=== PATIENT | male | born 1950 | race Caucasian/White ===

== ENCOUNTER 2025-01-07 05:18 | Observation (INO) | payer MEDICARE ==
[2025-01-05 12:43] LABS: BASOPHILS % 0.6 % (0.0-1.0); EOSINOPHILS % 4.9 % (0.0-6.0); LYMPHOCYTES % 27.1 % (18.0-39.1); MONOCYTES % 13.0 % (4.4-11.3); NEUTROPHILS % 54.1 % (38.7-80.0); RED CELL DISTRIBUTION WIDTH 13.9 % (11.7-14.4)
[2025-01-05 13:12] LABS: INR 1.03
[2025-01-05 13:21] LABS: EST GLOMERULAR FILTRATION RATE 94.0 ML/MIN (>=60)
[~2025-01-07] VITALS: Ht 175.3 cm; Wt 98.9 kg
[~2025-01-07 05:18] MED LIST: AMLODIPINE BESYL5 MG PO; ATORVASTATIN CA10 MG PO; CLARITIN10 MG PO; D3-5000125 MCG; ELIQUIS5 MG PO; LYRICA150 MG PO; METFORMIN HCL500 MG PO; METOPROLOL SUCC50 MG PO; PRILOSEC OTC20 MG; REZDIFFRA PO; VITAMIN C1000 MG PO
[2025-01-07] MEDS: CEFAZOLIN SODIUM 2 GM ONE (06:32)
[2025-01-07] MEDS: LACTATED RINGER'S 1,000 ML ONE (06:33)
[2025-01-07] MEDS ORDERED: FENTANYL CITRATE/PF 100MCG/2 ML INJ ONE ×2 (06:39→06:42)
[2025-01-07] MEDS ORDERED: LIDOCAINE HCL 2% LOCAL INJ 5 ML SDV VIAL INJ ONE (06:42)
[2025-01-07] MEDS ORDERED: ROCURONIUM BROMIDE 1 ML IV ONE (06:42)
[2025-01-07] MEDS ORDERED: PROPOFOL IV EMULSION 10 MG/ML 20 ML VIAL ONE (06:43)
[2025-01-07] MEDS ORDERED: SEVOFLURANE INHAL SOLN 250 ML PEN BTL ONE (06:43)
[2025-01-07] MEDS ORDERED: MIDAZOLAM HCL 2 MG/2 ML VIAL ONE (06:43)
[2025-01-07] MEDS ORDERED: DOCUSATE SODIUM 100 MG CAP PO PRN (07:00)
[2025-01-07] MEDS ORDERED: ONDANSETRON HCL INJ 2MG/ML 2ML 2 MG/ML VIAL IV PRN (07:00)
[2025-01-07] MEDS ORDERED: ACETAMINOPHEN 1000 MG/100 ML 100 ML IV ONE (07:50)
[2025-01-07] MEDS ORDERED: ROPIVACAINE/EPI/CLONIDINE/KET 50 ML SYRINGE INJ ONE (08:00)
[2025-01-07] MEDS ORDERED: EPHEDRINE SULFATE INJ 50 MG/ML VIAL ONE (08:06)
[2025-01-07] MEDS ORDERED: DEXAMETHASONE SOD PHOS INJ 4 MG/ML SDV ONE (08:06)
[2025-01-07] MEDS ORDERED: SODIUM CHLORIDE 0.9% INJ 10 ML VIAL ONE (08:06)
[2025-01-07] MEDS ORDERED: PHENYLEPHRINE HCL 1% 10 MG/ML VIAL ONE (08:06)
[2025-01-07] MEDS ORDERED: ONDANSETRON HCL INJ 2MG/ML 2ML 2 MG/ML VIAL ONE (08:06)
[2025-01-07] MEDS ORDERED: SUGAMMADEX SODIUM 200 MG/2 ML VIAL IV ONE (08:16)
[2025-01-07] MEDS: HYDROCODONE/APAP 7.5MG-325MG 1 EA TAB ONE (09:20)
[2025-01-07] MEDS: CEFAZOLIN SODIUM 2 GM in SODIUM CHLORIDE 0.9% 100 ML IV SCH (17:06)
[2025-01-07 17:58] VITALS: BP 123/77; PULSE 62; RESP 15; TEMP 97.5; O2SAT 97
[2025-01-07 20:00] VITALS: BP_SYST 120; BP_SYST 147; BP_DIAS 52; BP_DIAS 87; PULSE 106; PULSE 60; RESP 17; TEMP 97.9; TEMP 98.9; O2SAT 95; O2SAT 97
[2025-01-07] MEDS ORDERED: APIXABAN 5 MG TABLET PO SCH (21:00)
[2025-01-07] MEDS: AMLODIPINE BESYLATE 5 MG TAB PO SCH (21:46)
[2025-01-07] MEDS: ATORVASTATIN 10 MG TAB PO SCH (21:46)
[2025-01-07] MEDS: METOPROLOL SUCCINATE 50 MG TAB XL PO SCH (21:46)
[2025-01-07] MEDS: APIXABAN 5 MG TABLET PO SCH (21:47)
[2025-01-07] MEDS: HYDROCODONE/APAP 7.5MG-325MG 1 EA TAB PO PRN (21:47)
[2025-01-07] MEDS: PREGABALIN 75 MG CAP PO SCH (21:47)
[2025-01-07] MEDS: METFORMIN HCL 500 MG TAB PO SCH (22:57)
[2025-01-08] VITALS: BP 141/59; PULSE 60; RESP 20; TEMP 98.1; O2SAT 95
[2025-01-08 04:00] VITALS: BP 142/70; PULSE 65; RESP 20; TEMP 97.9; O2SAT 97
[2025-01-08 07:55] VITALS: BP 116/55; PULSE 61; RESP 16; TEMP 97.9; O2SAT 96
[2025-01-08] MEDS: ASCORBIC ACID 500 MG TAB PO SCH (08:51)
[2025-01-08] MEDS: LORATADINE 10 MG TAB PO SCH (08:51)
[2025-01-08 12:28] LABS: EST GLOMERULAR FILTRATION RATE 92.0 ML/MIN (>=60)
[2025-01-08 12:50] VITALS: BP 124/64; PULSE 60; RESP 16; TEMP 97.5; O2SAT 97
[2025-01-08] MEDS ORDERED: METFORMIN HCL 500 MG TAB PO SCH ×2 (17:50→21:00)
== END 2025-01-08 13:00 | disposition home or self-care (01) ==
LOC: OR 05:18 → PACU V 06:51 → MED/SURG 18:36
PROVIDERS: ADMIT Orthopaedic Surgery Adult Reconstructive Orthopaedic Surgery; ATTEND Orthopaedic Surgery Adult Reconstructive Orthopaedic Surgery
DX: M16.12 Unilateral primary osteoarthritis, left hip (principal); E11.9 Type 2 diabetes mellitus without complications; Z79.84 Long term (current) use of oral hypoglycemic drugs; I10 Essential (primary) hypertension; I48.20 Chronic atrial fibrillation, unspecified; E78.5 Hyperlipidemia, unspecified; Z79.01 Long term (current) use of anticoagulants; Z01.810 Encounter for preprocedural cardiovascular examination; Z01.812 Encounter for preprocedural laboratory examination; Z01.818 Encounter for other preprocedural examination
CPT/HCPCS: 27130; 36415 ×3; 71046; 72170; 80048; 80053; 82948; 85014; 85018; 85025; 85610; 85730; 86850; 86900; 93005; 97110; 97116; 97162; 97530 ×2; C1713 ×2; C1776 ×2; G0378 ×2; J0131; J1100; J2003; J2371; J2405; J2704; J3010; J7050 ×2; J7121; J0690; J2250